=== PATIENT | male | born 1970 | race Two or more races ===

== ENCOUNTER 2019-01-21 20:40 | Emergency (ER) | payer OTHER ==
[~2019-01-21] VITALS: Ht 193 cm; Wt 93.4 kg
[2019-01-21 21:40] VITALS: BP 135/78
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
[2019-01-21] MEDS ORDERED: ACETAMINOPHEN ES 500 MG TABLET ONE ×2 (22:50→22:58)
--- NOTE | 2019-01-21 22:51 | NUR ---
XRAY AT BEDSIDE
[2019-01-21] MEDS ORDERED: ACETAMINOPHEN 325 MG TABLET PO ONE (23:00)
--- NOTE | 2019-01-21 23:59 | NUR ---
Patient discharged to home in stable condition. Written and verbal after care instructions given. Patient verbalizes understanding of instruction. Pt ambulatory with a steady gait
== END 2019-01-22 00:02 | disposition home or self-care (01) ==
LOC: ER 20:40
DX: S16.1XXA Strain of muscle, fascia and tendon at neck level, initial encounter (principal); S43.52XA Sprain of left acromioclavicular joint, initial encounter; S60.222A Contusion of left hand, initial encounter; S50.812A Abrasion of left forearm, initial encounter; H93.12 Tinnitus, left ear; V49.49XA Driver injured in collision with other motor vehicles in traffic accident, initial encounter; Y93.89 Activity, other specified; Y92.411 Interstate highway as the place of occurrence of the external cause; Y99.8 Other external cause status
CPT/HCPCS: 73090-TC; 73130-TC